=== PATIENT | female | born 1985 | race Native Hawaiian/Other Pacific Islander ===

== ENCOUNTER → 2020-06-27 10:48 | Outpatient (CLI) | payer OTHER, SELFPAY ==
[2020-06-27 11:55] LABS: Add Manual Diff / Slide Review NO; Basophils Absolute Auto 0 /uL (0-100); Basophils Percent Auto 0.3 % (0-2); Eosinophils Absolute Auto 200 /uL (0-450); Eosinophils Percent Auto 2.3 % (2-4); Hematocrit 39.5 % (36-46); Hemoglobin 12.9 g/dL (12.0-16.0); Lymphocytes Absolute Auto 2000 /uL (1100-4500); Lymphocytes Percent Auto 22.5 % (25-40); Mean Corpuscular HGB Conc 32.7 % (30-36); Mean Corpuscular Hemoglobin 26.4 PG (26-34); Mean Corpuscular Volume 80.7 fL (80-100); Monocytes Absolute Auto 400 /uL (0-900); Monocytes Percent Auto 4.6 % (3-14); Neutrophils Absolute Auto 6200 /uL (1500-7000); Neutrophils Percent Auto 70.3 % (50-75); Platelet Count 241 X10^3/uL (150-400); Red Blood Cell Count 4.89 X10^6/uL (4.0-5.2); Red Cell Distribution Width 18.3 % (11.6-14.8); White Blood Cell Count 8.9 X10^3/uL (4.5-11.0)
[2020-06-27 12:22] LABS: Alanine Aminotransferase 18 IU/L (<35); Albumin 4.2 g/dL (3.5-5.0); Albumin Globulin Ratio 1.4 (1.0-2.8); Alkaline Phosphatase 57 U/L (38-126); Aspartate Aminotransferase 21 IU/L (14-36); BUN Creatinine Ratio 17.8 (6-22); Bilirubin Total 0.3 mg/dL (0.2-1.3); Blood Urea Nitrogen 13 mg/dL (7-17); Carbon Dioxide 29 mmol/L (22-32); Chloride 102 mmol/L (98-107); Cholesterol 129 mg/dL (140-199); Estimated Glomerular Filt Rate > 60.0 mL/min (>60); Globulin 3.1 g/dL (1.7-4.1); Glucose 97 mg/dL (70-100); HDL Cholesterol 37 mg/dL (40-60); HEMOLYSIS < 15 (0-50); LDL Cholesterol Calculated 78 mg/dL (<100); Potassium 4.1 mmol/L (3.4-5.1); Sodium 135 mmol/L (137-145); Total Protein 7.3 g/dL (6.3-8.2); Triglycerides 68 mg/dL (35-150)
[2020-06-27 12:36] LABS: Free T4, Direct Thyroxine 0.88 ng/dL (0.78-2.19)
[2020-06-27 12:38] LABS: Appearance Urine UA CLEAR; Bilirubin Urine UA NEGATIVE (NEGATIVE); Color Urine UA YELLOW; Glucose Urine UA NEGATIVE (Negative); Ketones Urine UA NEGATIVE (NEGATIVE); Leukocyte Esterase Urine UA NEGATIVE (NEGATIVE); Nitrite Urine UA NEGATIVE (Negative); Occult Blood Urine UA 2+ (Negative); Protein Urine UA NEGATIVE (Negative); Urobilinogen Urine UA 0.2 E.U./dL (0.2)
[2020-06-27 12:47] LABS: HCG Quantitative /Beta subunit 13233 mIU/mL
[2020-06-27 12:50] LABS: Thyroid Stimulating Hormone 3.42 uIU/mL (0.47-4.68)
[2020-06-27 12:59] LABS: pH Urine UA 5.5 (4.5-8.0)
[2020-06-27 13:00] LABS: Bacteria Urine None Seen; Culture Indicated Urine Cult Not Indicated; RBC Urine 5-10/HPF (0-5/HPF); WBC Urine 1-5/HPF (0-5/HPF)
[2020-06-28 08:11] LABS: RPR Screen Non Reactive (Non Reactive)
[2020-06-28 12:20] LABS: Varicella IgG Antibody <135 index (Immune >165)
[2020-06-29 16:28] LABS: HIV 1 & 2 Ab/Ag 4th Gen Combo NEGATIVE (NEGATIVE); Hep C Virus Ab w/Reflex Quant NEGATIVE s/c (NEGATIVE); Hepatitis B Surface Antigen NEGATIVE s/c (NEGATIVE); Rubella Antibody IgG 10.6 IU/mL (>15)
== END ==
PROVIDERS: Obstetrics & Gynecology; PCP Registered Nurse; Referring Provider Registered Nurse; Visit Provider Registered Nurse
DX: Z34.81 Encounter for supervision of other normal pregnancy, first trimester (principal); D64.9 Anemia, unspecified; Z83.42 Family history of familial hypercholesterolemia; Z83.49 Family history of other endocrine, nutritional and metabolic diseases
CPT/HCPCS: 36415; 80053; 80055; 80061; 81003; 81015; 84439; 84443; 84702; 86787; 86803; 86850; 86900; 86901; 87077; 87086; 87389

== ENCOUNTER → 2020-06-29 07:03 | Outpatient (CLI) | payer OTHER, SELFPAY ==
[2020-06-29 09:16] LABS: HCG Quantitative /Beta subunit 13256 mIU/mL
== END ==
PROVIDERS: PCP Registered Nurse; Referring Provider Obstetrics & Gynecology; Visit Provider Obstetrics & Gynecology
DX: Z34.90 Encounter for supervision of normal pregnancy, unspecified, unspecified trimester (principal)
CPT/HCPCS: 36415; 84702

== ENCOUNTER → 2020-10-13 07:06 | Outpatient (CLI) | payer OTHER, SELFPAY ==
[2020-10-13 09:00] LABS: HCG Quantitative /Beta subunit 1556.9 mIU/mL
== END ==
PROVIDERS: PCP Registered Nurse; Referring Provider Obstetrics & Gynecology; Visit Provider Obstetrics & Gynecology
DX: Z34.91 Encounter for supervision of normal pregnancy, unspecified, first trimester (principal)
CPT/HCPCS: 36415; 84702

== ENCOUNTER → 2020-10-15 07:03 | Outpatient (CLI) | payer OTHER, SELFPAY ==
[2020-10-15 08:15] LABS: HCG Quantitative /Beta subunit 3446.7 mIU/mL
== END ==
PROVIDERS: PCP Registered Nurse; Referring Provider Obstetrics & Gynecology; Visit Provider Obstetrics & Gynecology
DX: Z34.91 Encounter for supervision of normal pregnancy, unspecified, first trimester (principal)
CPT/HCPCS: 36415; 84702

== ENCOUNTER → 2020-11-12 09:29 | Outpatient (CLI) | payer OTHER, SELFPAY ==
[2020-11-12 10:13] LABS: Add Manual Diff / Slide Review NO; Basophils Absolute Auto 0 /uL (0-100); Basophils Percent Auto 0.3 % (0-2); Eosinophils Absolute Auto 300 /uL (0-450); Eosinophils Percent Auto 2.7 % (2-4); Hematocrit 38.8 % (36-46); Hemoglobin 12.8 g/dL (12.0-16.0); Lymphocytes Absolute Auto 1800 /uL (1100-4500); Lymphocytes Percent Auto 17.7 % (25-40); Mean Corpuscular Hemoglobin 26.5 PG (26-34); Mean Corpuscular Volume 80.2 fL (80-100); Monocytes Absolute Auto 400 /uL (0-900); Monocytes Percent Auto 4.1 % (3-14); Neutrophils Absolute Auto 7500 /uL (1500-7000); Neutrophils Percent Auto 75.2 % (50-75); Platelet Count 262 X10^3/uL (150-400); Red Blood Cell Count 4.84 X10^6/uL (4.0-5.2); Red Cell Distribution Width 17.6 % (11.6-14.8)
[2020-11-12 11:00] LABS: Appearance Urine UA SL CLOUDY; Bilirubin Urine UA NEGATIVE (NEGATIVE); Color Urine UA YELLOW; Glucose Urine UA NEGATIVE (Negative); Ketones Urine UA NEGATIVE (NEGATIVE); Leukocyte Esterase Urine UA 3+ (NEGATIVE); Nitrite Urine UA NEGATIVE (Negative); Occult Blood Urine UA 1+ (Negative); Protein Urine UA NEGATIVE (Negative); Urobilinogen Urine UA 0.2 E.U./dL (0.2)
[2020-11-12 11:36] LABS: Amorphous Sediment Urine 1+; Bacteria Urine Many (>30); RBC Urine 0-1/HPF (0-5/HPF); Squamous Epithelial Cell Urine 10-30 /HPF (0-5/HPF); WBC Urine 5-10/HPF (0-5/HPF)
[2020-11-12 11:44] LABS: Hepatitis B Surface Antigen NEGATIVE s/c (NEGATIVE); Rubella Antibody IgG 10.3 IU/mL (>15)
[2020-11-12 12:05] LABS: HIV 1 & 2 Ab/Ag 4th Gen Combo NEGATIVE (NEGATIVE); Hep C Virus Ab w/Reflex Quant NEGATIVE s/c (NEGATIVE)
[2020-11-13 08:46] LABS: RPR Screen Non Reactive (Non Reactive); Varicella IgG Antibody <135 index (Immune >165)
== END ==
PROVIDERS: PCP Registered Nurse; Referring Provider Obstetrics & Gynecology; Visit Provider Obstetrics & Gynecology
DX: Z34.81 Encounter for supervision of other normal pregnancy, first trimester (principal)
CPT/HCPCS: 36415; 80055; 81003; 81015; 86787; 86803; 86850; 86900; 86901; 87086; 87389

== ENCOUNTER → 2020-11-25 11:39 | Outpatient (CLI) | payer OTHER, SELFPAY | PROVIDERS: PCP Registered Nurse; Referring Provider Obstetrics & Gynecology; Visit Provider Obstetrics & Gynecology | DX: Z34.81 Encounter for supervision of other normal pregnancy, first trimester (principal); Z36.0 Encounter for antenatal screening for chromosomal anomalies | CPT/HCPCS: 36415 ==

== ENCOUNTER → 2021-01-29 09:01 | Outpatient (CLI) | payer OTHER, SELFPAY ==
--- NOTE | 2021-01-29 09:02 | DI.US.S_ITS ---
PROCEDURE: US OB >= 14 WEEKS FETUS INDICATIONS: ANATOMY OUTSIDE/PRIOR DATING DATA: Last menstrual period (LMP): September 12, 2020. First dating scan (date and location): A; October 29, 2020 . LMP based estimated date of delivery (LONA): June 19, 2021 . The below data was generated using ultrasound LONA of June 20, 2021 TECHNIQUE: Real-time scanning was performed of the fetus, with image documentation and biometric measurements. COMPARISON: None. FINDINGS: General: A single living intrauterine gestation is present. Presentation: Breech. Placenta: Placental position is posterior , without previa. Amniotic fluid index: 10.4 cm, normal range is 5-24 cm. heart rate: 141 beats per minute. Maternal cervical canal: 4.7 cm long. Normal lower limit is 2.5 cm. biometrics: Biparietal diameter: 4.6 cm Head circumference: 16.9 cm Abdominal circumference: 15.4 cm Femur length: 2.9 cm Estimated gestational age from initial scan: not applicable. Estimated weight and percentile: 317 g +/-47 g; 45th percentile Measurement variability for biometric dating: +/- 7 days from 14 weeks to 15 weeks 6 days gestation, +/- 10 days from 16 weeks to 21 weeks 6 days gestation, +/- 2 weeks from 22 weeks to 27 weeks 6 days gestation, +/- 3 weeks for 28 weeks gestation or later. weight reference: 4500 g or EFW >90/95% is considered macrosomia or large for gestational age. EFW <10% is small for gestational age. EFW 5% or less is considered intra-uterine growth restriction. Anatomic survey: Neuro: Ventricles are non-dilated at less than 10 mm. Cisterna magna is normal at 3-11 mm. Cerebellum is normal in size and morphology. Nuchal skin fold: Normal at less than 6 mm between 14-21 weeks gestational age. Face: Nose and lips, facial profile are normal. Spine: No evidence for spina bifida. Heart: 4-chambered heart is present, with normal ventricular outflow tracts. Diaphragm: Diaphragm is intact. Stomach: Left-sided stomach is present. Kidneys: No hydronephrosis. Normal is less than 5 mm in 2nd trimester, less than 7 mm in 3rd trimester. Cord: 3-vessel cord has orthotopic insertion. Bladder: Normal in size. Extremities: All 4 extremities identified. IMPRESSION: Live single intrauterine gestation as detailed above. Dictated by: Gato Mccauley M.D. on 01/29/2021 at 10:34 Approved by: Gato Mccauley M.D. on 01/29/2021 at 10:52
== END ==
PROVIDERS: PCP Registered Nurse; Referring Provider Registered Nurse; Visit Provider Registered Nurse
DX: Z34.82 Encounter for supervision of other normal pregnancy, second trimester (principal); Z3A.20 20 weeks gestation of pregnancy
CPT/HCPCS: 76811

== ENCOUNTER → 2021-03-10 10:13 | Outpatient (CLI) | payer OTHER, SELFPAY ==
[2021-03-10 12:59] LABS: Hematocrit 35.4 % (36-46); Hemoglobin 12.1 g/dL (12.0-16.0)
[2021-03-10 14:10] LABS: GTT (PREG) 1 Hour PP 50gm Dose 165 mg/dL (76-139)
== END ==
PROVIDERS: PCP Registered Nurse; Referring Provider Obstetrics & Gynecology; Visit Provider Obstetrics & Gynecology
DX: Z34.82 Encounter for supervision of other normal pregnancy, second trimester (principal); Z3A.25 25 weeks gestation of pregnancy
CPT/HCPCS: 36415; 82950; 85014; 85018

== ENCOUNTER → 2021-03-26 07:27 | Outpatient (CLI) | payer OTHER, SELFPAY ==
[2021-03-26 09:09] LABS: Glucose Fasting Gestational 104 mg/dL (76-95)
[2021-03-26 09:36] LABS: Glucose 1 Hour Gest 181 mg/dL (76-180)
[2021-03-26 10:44] LABS: Glucose Tol Interp,Gestational INTERPRETATION
[2021-03-26 11:12] LABS: Glucose 2 Hour Gest 160 mg/dL (76-155)
[2021-03-26 11:14] LABS: Glucose 3 Hour Gest 109 mg/dL (76-140)
== END ==
PROVIDERS: PCP Registered Nurse; Referring Provider Obstetrics & Gynecology; Visit Provider Obstetrics & Gynecology
DX: O99.810 Abnormal glucose complicating pregnancy (principal)
CPT/HCPCS: 36415; 82951; 82952

== ENCOUNTER → 2021-04-13 09:05 | Outpatient (CLI) | payer OTHER, SELFPAY ==
--- NOTE | 2021-04-13 12:01 | DIAB.GDA ---
Addendum entered by Jeanne Araiza 05/05/21 16:40: Haydee had to cancel last DM ed appt due to work conflict. Tried calling pt x 2 to determine f/u plan. LVM each time. Original Note: Initial Gestational Diabetes Assessment Name: Haydee Nagel Date: 04/13/21 Time: 285-1080a Dx: Gestational Diabetes Provider: Sandeep LONA: 06/13/21 Weeks: 31 Haydee presents today for initial apt with and child. Reports twin adopted boys and one biological son. She is having a boy! States last she gained 60# and her son was born 10#. Passed the glucola screen that . She is wondering if she could have had GDM then as well. Denies h/o hypoglycemia. Endorses coming into this at a higher than her usually weight. Reports FH of prediabetes but not DM. 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 This makes work very busy and stress full. Works 4 x 10 hour shifts per week. Diet recall indicates high carb intake for some meals, especially with sugar sweetened beverages. Limited SMBG, though all FBG above target indicating likelihood of medication management needed. Asked that she call her OB office last week when we spoke over the phone. Unfortunately, she was unable to call. Agrees to contact office today. Prefers to manage with oral meds. Encouraged her to discuss options with provider, insulin vs metformin. Diet Recall: 6a: mocha (30g CHO) 745a: fruit, cheese, crackers (20-30g CHO) 12p: sandwich on white, chips and sweet tea (80g CHO) 3p: carrots and ranch (0-5g CHO) 6p: pasta with sauce and burger meat OR salad OR chicken with white rice and veggies (30-75g CHO) 7p: nothing or popscicle (0-30g CHO0 Beverages: 100oz water, 17oz sweet tea (40g CHO), OJ 8 oz (30g CHO), mocha (30g CHO), sips of soda Anthropometrics: Ht: 5'9 Wt: 292.4# Prepregnancy wt: 265# Wt changes: 27.4# Physical Activity: No current program. Has a treadmill. States she walks a lot for work and is too tired to walk after work. Has three days off and may be open to more walking on these days. Self-Monitoring Blood Glucose: All FBG above goal. After meal reading at 30 min and not 1 or 2 hour, so not very reliable value. Date Pre Post Pre Post 30 min Pre Post HS 04/07 101 117 04/08 99 111 04/09 102 116 04/10 10 112 04/11 103 115 04/12 99 113 04/13 100 Diabetes Medications: None Pertinent Labs: OGTT: 104, 181, 160, 109 Nutrition Rx: Carbohydrates: Meal: 45-60g lunch and dinner; 30g breakfast Snack: 15-30g Nutrition Diagnosis: Altered nutrition related lab value r/t GDM dx aeb recent OGTT Excessive CHO intake r/t nutrition knowledge deficit aeb diet recall and pt report Physical inactivity r/t reported fatigue and work schedule aeb pt report Intervention: This participant was very receptive. Provided appropriate educational handouts. Discussed the following topics: GDM pathophysiology and impact of hyperglycemia on mom and baby Risk for T2DM for mom and baby in the future Ways to reduce risk T2DM Plate Method, meal timing, carb counting, pairing macronutrients and spreading out CHO for better BG management Blood glucose goals (FBG: <95 and 1 hour <140 mg/dL); Impact of macronutrients on blood glucose Recommended servings for carbohydrates at meals and snacks Brainstormed appropriate meal plan based on her food preferences Addressed her questions and concerns, including weight gain Reviewed sugar substitutes safe for Medication management of FBG education Role of physical activity and following provider guidelines for safety Goals: Try to check 1 hour pc as much as she can Pair carbs and protein for meals and snacks Avoid sugared beverages Contact provider about elevated fastings Follow-up: HARSHIL HOPKINS follow-up in two weeks. Jeanne Araiza RDN, SANDEEP Certified Diabetes Care and Food Services Coordinator T: [phone] F: [phone] [email or web address] Thank you for this referral
== END ==
PROVIDERS: PCP Registered Nurse; Referring Provider Obstetrics & Gynecology; Visit Provider Obstetrics & Gynecology
DX: O24.419 Gestational diabetes mellitus in pregnancy, unspecified control (principal); Z3A.31 31 weeks gestation of pregnancy
CPT/HCPCS: 97802

== ENCOUNTER → 2021-05-03 10:33 | Outpatient (CLI) | payer OTHER, SELFPAY ==
--- NOTE | 2021-05-03 10:34 | DI.US.S_ITS ---
PROCEDURE: US OB LIMITED INDICATIONS: ASSESS WEIGHT AND RLE OUT MACROSOMIA OUTSIDE/PRIOR DATING DATA: First dating scan (date and location): 10/29/2020. Estimated date of delivery (LONA) from first dating scan: 06/19/2020. The calculations are made using the ultrasound LONA of 06/19/2020. TECHNIQUE: Real-time scanning was performed of the fetus, with image documentation and biometric measurements. Endovaginal scanning: Not performed. COMPARISON: [facility], OB >= 14 WEEKS FETUS, 01/29/2021, 9:29. FINDINGS: General: A single living intrauterine gestation is present. Presentation: Cephalic. Placenta: Placental position is posterior, without previa. Amniotic fluid index: 10.5 cm, normal range is 5-24 cm. Single deepest vertical pocket is 3.8 cm. heart rate: 143 beats per minute. Maternal cervical canal: Not visualized. biometrics: Biparietal diameter: 8.3 cm, 33 weeks 3 days Head circumference: 30.8 cm, 34 weeks 3 days Abdominal circumference: 30.1 cm, 34 weeks 0 days Femur length: 5.7 cm, at 29 weeks 5 days Clinically estimated gestational age: 33 weeks 2 days Composite gestational age from present scan: 33 weeks 4 days Estimated weight and percentile: 2055 g, 28% percentile. IMPRESSION: 1. Del Angel living intrauterine at 33 weeks 4 days based on today's ultrasound. This is concordant with prior dating. Fetus is in the 28th percentile for weight. 2. Normal placenta and amniotic fluid. 3. Femur length measuring at 29 weeks 5 days. Less than the 5th percentile. (Previously at the 17th percentile). We strive to produce accurate, complete, and clear reports of imaging services. To assist us in improving patient care, this report was composed using standard report templates and voice recognition software. Therefore, it may contain abnormal punctuation, insertions and/or omissions. Occasional wrong-word or sound-alike substitutions may occur. Though we review the report and make efforts to correct it, we do recommend that the report be read carefully in proper context to recognize any text inaccuracies. Dictated by: Catrachito Camara M.D. on 05/03/2021 at 12:09 Approved by: Catrachito Camara M.D. on 05/03/2021 at 12:15
== END ==
PROVIDERS: PCP Registered Nurse; Referring Provider Obstetrics & Gynecology; Visit Provider Obstetrics & Gynecology
DX: O24.415 Gestational diabetes mellitus in pregnancy, controlled by oral hypoglycemic drugs (principal); Z3A.33 33 weeks gestation of pregnancy
CPT/HCPCS: 76815

== ENCOUNTER 2021-05-07 11:43 | Observation (INO) | payer OTHER, SELFPAY ==
[2021-05-07] MEDS: LACTATED RINGERS 1,000 ML 100 ML IV (12:41)
[2021-05-07] MEDS: PENICILLIN G POTASSIUM 5,000,000 UNIT in DEXTROSE 5% IN WATER 250 ML IV (12:41)
[2021-05-07] MEDS: BETAMETHASONE 30 MG/5 ML MDV 12 MG IM (12:43)
[2021-05-07 12:44] LABS: Add Manual Diff / Slide Review NO; Basophils Absolute Auto 0 /uL (0-100); Basophils Percent Auto 0.1 % (0-2); Eosinophils Absolute Auto 0 /uL (0-450); Eosinophils Percent Auto 0.4 % (2-4); Hematocrit 34.2 % (36-46); Hemoglobin 11.7 g/dL (12.0-16.0); Lymphocytes Absolute Auto 1500 /uL (1100-4500); Lymphocytes Percent Auto 14.3 % (25-40); Mean Corpuscular HGB Conc 34.3 % (30-36); Mean Corpuscular Hemoglobin 27.5 PG (26-34); Monocytes Absolute Auto 400 /uL (0-900); Monocytes Percent Auto 4.3 % (3-14); Neutrophils Absolute Auto 8300 /uL (1500-7000); Neutrophils Percent Auto 80.9 % (50-75); Platelet Count 214 X10^3/uL (150-400); Red Blood Cell Count 4.28 X10^6/uL (4.0-5.2); Red Cell Distribution Width 15.8 % (11.6-14.8); White Blood Cell Count 10.3 X10^3/uL (4.5-11.0)
--- NOTE | 2021-05-07 12:46 | P.TNLD_ITS ---
Visit Information Visit Information Date of evaluation: 05/07/21 Primary OB Provider: Vinod Hopkins Reason for Evaluation: Yes rupture of membranes Comments/Additional reasons for admission: Patient is a 35 yo A1 LONA 06/13/2021, 34+5 weeks EGA who presents with a gush of fluid at 7:00 a.m. this morning. She presented for evaluation to [facility] where her AmniSure was positive and gross rupture membranes evident with clear fluid per vagina. course thus far has been largely uneventful with the exception that the patient has been diagnosed with gestational diabetes based on an abnormal GDM screen followed by a 3 hour glucose tolerance which showed a fasting blood sugar 104, 1 hour of 181, 2 hour of 160, and 3 hour of 109. After initiation dietary management, metformin 500 mg p.o. b.i.d. was initiated approximately 2 weeks ago which has resulted in markedly improved blood sugars. Her glucose logs which were reviewed yesterday, show fastings typically at or below 90 with occasional fastings as high as 97. 1 hour postprandial blood sugars have all been less than 120 with most in the 115 range. Her most recent OB ultrasound performed 05/03/2020 shows the infant to be at the 28th percentile insofar as estimated weight with a posterior placenta and a normal MICHELLE of 10.5 cm but her femur length is less than the 5th percentile. No other abnormalities were noted or reported. labs include a blood type of O positive with a negative antibody screen. All serology including HIV, hepatitis-B, hepatitis-C, RPR are negative. Her rubella and varicella titers however are non immune. Since experiencing PPROM, the patient has not had any significant contraction activity in her baby remains active with a category 1 tracing on the [facility]. A COVID test performed on admission to the Center however is positive but she is asymptomatic at this time. Vital Signs Vital Signs: T=97.7, P=68, EF=235/69 [facility] Medical History SAB (spontaneous ) (~07/10/20) (spontaneous vaginal delivery) (~10/20/06) Surgical History Anesthesia Hx laparoscopic cholecystectomy (~2006) Family History Mother Smoker COVID-19 Father Family disruption due to marital estrangement Grandmother Lung cancer DVT (deep venous thrombosis) Grandfather S/P CABG x 4 Grandmother Myocardial infarct Coronary stent patent Hyperlipidemia Grandfather Alcohol abuse MVA (motor vehicle accident) Brother Hydronephrosis Hydrocephalus Sister No problems noted. 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 ) Tobacco: How many years used: 3 quit status: has quit before second hand exposure: No ([id number] smokes in garage but well ventilated. ) alcohol intake: former (Used to drink but as a couple they do not drink at all anymore.) substance use type: does not use during the past year weight has: increased > 10 lbs well-balanced diet: daily or most days daily servings fruits/ve or more times/day caffeine: No (Quit w . ) Type(s) of exercise: walking and normal ROM and activity (Also 3 year old twins.) frequency: daily Review of Systems Review of Systems Narrative: Problem-specific ROS positives included in HPI Exam Const General: cooperative, comfortable and No acute distress Nutritional Appearance: overweight Orientation: alert HENMT Head: normal to inspection, normocephalic and atraumatic Ears: hearing grossly normal bilaterally Eyes General: appearance normal, both eyes and all related structures Neck Neck: normal visual inspection Resp Effort & Inspection: normal respiratory effort and able to speak in complete sentences Auscultation: clear to auscultation bilaterally Cardio Rate: regular rate Rhythm: regular rhythm Heart Sounds: S1 normal, S2 normal and no murmurs GI Inspection: normal to inspection and other (Gravid) Palpation: soft and no hepatosplenomegaly External Female Exam: normal external appearance Speculum Exam - Vagina: other (Clear fluid PV) Speculum Exam - Cervix: other (Sterile vaginal exam deferred) Uterus Location (Fundal Height): 35 Presentation: vertex Estimated Weight (lbs): 4 Amniotic Fluid: clear Extrem General: normal to inspection and no calf tenderness Psych Appearance: grossly normal Mental Status: mental status grossly normal Speech and Movement: speech and movement normal Mood: congruent mood Affect: normal affect Attitude: cooperative Thought Process: normal Thought Content: normal Judgment: judgment good Objective Labs Result Diagrams: 05/07/21 12:34 Labs: Laboratory Results - last 24 hr 05/07/21 12:34 WBC 10.3 RBC 4.28 Hgb 11.7 L Hct 34.2 L MCV 80.0 MCH 27.5 MCHC 34.3 RDW 15.8 H Plt Count 214 Neut % (Auto) 80.9 H Lymph % (Auto) 14.3 L Lanier % (Auto) 4.3 Eos % (Auto) 0.4 L Baso % (Auto) 0.1 Neut # (Auto) 8300 H Lymph # (Auto) 1500 Lanier # (Auto) 400 Eos # (Auto) 0 Baso # (Auto) 0 Evaluation Evaluation Baseline heart rate: 155 Variability: Moderate (11-25) monitor accelerations: Present Monitor Decelerations: Absent Category of Tracing: Reactive Status: Category l Comments: Patient is having no contractions or sensation of pelvic pressure. Cervical exam therefore deferred until indicated in the presence of PPROM. Diagnosis, Plan/Disposition Plan/Disposition Plan: ASSESSMENT Intrauterine gestation, Del Angel, vertex, 34+5 weeks gestational age PPROM, clear fluid 0700 05/07/2021 COVID-19 POSITIVE (Currently Assymptomatic) A2GDM well controlled with diet and metformin 500 mg p.o. b.i.d. Short femurs on growth ultrasound 05/03/2021 GBS status unknown PLAN IV penicillin 5M U IV due to unknown GBS status Betamethasone 12 mg IM x 1 Droplet isolation Transfer to [facility] L[facility] for delivery due to availability of NICU; accepting physician Dr. Cindy Daly, OB/MFM Records to accompany patient via ALS ambulance OB Disposition: tertiary care transfer
[2021-05-07 12:56] LABS: COVID19 -Nasal RAPID POSITIVE (Negative)
[2021-05-07 14:03] LABS: Strep Grp B PCR NEG for Grp B Strep
== END 2021-05-07 14:00 | disposition home or self-care (01) ==
PROVIDERS: Admitting Provider Obstetrics & Gynecology; PCP Registered Nurse; Referring Provider Obstetrics & Gynecology; Visit Provider Obstetrics & Gynecology
DX: O42.913 Preterm premature rupture of membranes, unspecified as to length of time between rupture and onset of labor, third trimester (principal); O24.415 Gestational diabetes mellitus in pregnancy, controlled by oral hypoglycemic drugs; Z3A.34 34 weeks gestation of pregnancy
CPT/HCPCS: 36415; 59025; 59050; 84112; 85025; 87081; 87147; 87635; 87653; 96360; 96372; C9803; G0378; G0379; J0702; J2540

== ENCOUNTER → 2021-09-28 11:28 | Outpatient (CLI) | payer OTHER, SELFPAY ==
[2021-09-28 12:38] LABS: Add Manual Diff / Slide Review NO; Basophils Absolute Auto 0 /uL (0-100); Basophils Percent Auto 0.2 % (0-2); Eosinophils Absolute Auto 300 /uL (0-450); Eosinophils Percent Auto 3.6 % (2-4); Hematocrit 37.7 % (36-46); Hemoglobin 12.7 g/dL (12.0-16.0); Lymphocytes Absolute Auto 2100 /uL (1100-4500); Mean Corpuscular HGB Conc 33.6 % (30-36); Mean Corpuscular Hemoglobin 25.8 PG (26-34); Mean Corpuscular Volume 76.9 fL (80-100); Monocytes Absolute Auto 400 /uL (0-900); Monocytes Percent Auto 5.4 % (3-14); Neutrophils Absolute Auto 5300 /uL (1500-7000); Neutrophils Percent Auto 64.8 % (50-75); Platelet Count 313 X10^3/uL (150-400); Red Cell Distribution Width 15.4 % (11.6-14.8); White Blood Cell Count 8.2 X10^3/uL (4.5-11.0)
[2021-09-28 13:03] LABS: HEMOLYSIS < 15 (0-50); Iron 39 ug/dL (37-170)
[2021-09-28 13:08] LABS: Alanine Aminotransferase 16 IU/L (<35); Albumin 4.2 g/dL (3.5-5.0); Albumin Globulin Ratio 1.1 (1.0-2.8); Alkaline Phosphatase 57 U/L (38-126); Aspartate Aminotransferase 26 IU/L (14-36); Bilirubin Total 0.5 mg/dL (0.2-1.3); Blood Urea Nitrogen 16 mg/dL (7-17); Calcium 8.4 mg/dL (8.4-10.2); Carbon Dioxide 29 mmol/L (22-32); Chloride 104 mmol/L (98-107); Estimated Glomerular Filt Rate > 60 mL/min (>60); Globulin 3.8 g/dL (1.7-4.1); Glucose 108 mg/dL (70-100); HEMOLYSIS < 15 (0-50); Potassium 3.8 mmol/L (3.4-5.1); Sodium 139 mmol/L (137-145)
[2021-09-28 13:14] LABS: Percent Iron Saturation 10 % (15-50); Total Iron Binding Capacity 391 ug/dL (265-497); Transferrin 293 mg/dL (206-381)
[2021-09-28 13:33] LABS: TSH w/ Reflex to FT4 2.16 uIU/mL (0.47-4.68)
== END ==
PROVIDERS: PCP Pediatrics; Referring Provider Pediatrics; Visit Provider Pediatrics
DX: O24.415 Gestational diabetes mellitus in pregnancy, controlled by oral hypoglycemic drugs (principal); D64.9 Anemia, unspecified; R53.83 Other fatigue; Z83.49 Family history of other endocrine, nutritional and metabolic diseases
CPT/HCPCS: 36415; 80053; 83540; 83550; 84443; 85025

== ENCOUNTER 2022-12-05 15:52 | Emergency (ER) | payer OTHER, SELFPAY ==
--- NOTE | 2022-12-05 17:04 | PC.NURSE ---
patient called in main ER waiting room, fast track waiting area and surgery waiting area with no answer. both lobby bathrooms checked.
--- NOTE | 2022-12-05 17:19 | PC.NURSE ---
patient called in main ER waiting area, fast track waiting area, and surgery waiting area with no answer. both bathrooms checked.
== END 2022-12-05 19:16 | disposition left against medical advice (07) ==
PROVIDERS: Emergency Provider Emergency Medicine

== ENCOUNTER → 2022-12-07 10:00 | Outpatient (CLI) | payer OTHER, SELFPAY ==
[2022-12-07 11:10] LABS: Appearance Urine UA SL CLOUDY; Bilirubin Urine UA NEGATIVE (NEGATIVE); Color Urine UA YELLOW; Glucose Urine UA NEGATIVE (Negative); Ketones Urine UA NEGATIVE (NEGATIVE); Leukocyte Esterase Urine UA TRACE (NEGATIVE); Nitrite Urine UA NEGATIVE (Negative); Occult Blood Urine UA 1+ (Negative); Protein Urine UA NEGATIVE (Negative)
[2022-12-07 11:14] LABS: Alanine Aminotransferase 15 IU/L (<35); Albumin 3.9 g/dL (3.5-5.0); Albumin Globulin Ratio 1.1 (1.0-2.8); Alkaline Phosphatase 46 U/L (38-126); Aspartate Aminotransferase 22 IU/L (14-36); BUN Creatinine Ratio 14.9 (6-22); Bilirubin Total 0.2 mg/dL (0.2-1.3); Blood Urea Nitrogen 11 mg/dL (7-17); Calcium 8.2 mg/dL (8.4-10.2); Carbon Dioxide 25 mmol/L (22-32); Chloride 107 mmol/L (98-107); Cholesterol 128 mg/dL (140-199); Estimated Glomerular Filt Rate > 60 mL/min (>60); Globulin 3.5 g/dL (1.7-4.1); Glucose 101 mg/dL (70-100); HDL Cholesterol 32 mg/dL (40-60); HEMOLYSIS < 15 (0-50); LDL Cholesterol Calculated 84 mg/dL (<100); Sodium 138 mmol/L (137-145); Total Protein 7.4 g/dL (6.3-8.2); Triglycerides 60 mg/dL (35-150)
[2022-12-07 11:23] LABS: Add Manual Diff / Slide Review NO; Basophils Absolute Auto 0 /uL (0-100); Basophils Percent Auto 0.6 % (0-2); Eosinophils Absolute Auto 300 /uL (0-450); Eosinophils Percent Auto 4.3 % (2-4); Hematocrit 26.7 % (36-46); Hemoglobin 8.5 g/dL (12.0-16.0); Lymphocytes Absolute Auto 2200 /uL (1100-4500); Lymphocytes Percent Auto 27.9 % (25-40); Mean Corpuscular HGB Conc 31.7 % (30-36); Mean Corpuscular Hemoglobin 20.8 PG (26-34); Mean Corpuscular Volume 65.5 fL (80-100); Monocytes Absolute Auto 300 /uL (0-900); Monocytes Percent Auto 4.4 % (3-14); Neutrophils Absolute Auto 5000 /uL (1500-7000); Neutrophils Percent Auto 62.8 % (50-75); Platelet Count 340 X10^3/uL (150-400); Red Blood Cell Count 4.07 X10^6/uL (4.0-5.2); White Blood Cell Count 7.9 X10^3/uL (4.5-11.0)
[2022-12-07 11:25] LABS: pH Urine UA 5.5 (4.5-8.0)
[2022-12-07 11:39] LABS: RBC Urine 1-5/HPF (0-5/HPF)
[2022-12-07 11:40] LABS: Bacteria Urine Few (2-10); Culture Indicated Urine Specimen Cultured; Squamous Epithelial Cell Urine 1-5 /HPF (0-5/HPF); WBC Urine 1-5/HPF (0-5/HPF)
[2022-12-07 11:41] LABS: Testosterone 18.8 ng/dL (5.71-77.0)
[2022-12-07 11:44] LABS: TSH w/ Reflex to FT4 3.34 uIU/mL (0.47-4.68)
[2022-12-07 11:51] LABS: Anisocytosis 2+
[2022-12-07 11:52] LABS: Microcytosis 1+; Ovalocytes 1+
[2022-12-07 12:21] LABS: Follicle Stimulating Hormone 6.71 mIU/mL; Luteinizing Hormone 7.79 mIU/mL
== END ==
PROVIDERS: PCP Pediatrics; Referring Provider Pediatrics; Visit Provider Pediatrics
DX: E66.9 Obesity, unspecified (principal); N92.6 Irregular menstruation, unspecified; R53.83 Other fatigue; Z30.011 Encounter for initial prescription of contraceptive pills
CPT/HCPCS: 36415; 80053; 80061; 81001; 83001; 83002; 84403; 84443; 85025; 87086